=== PATIENT | female | born 1955 | race Two or more races ===

== ENCOUNTER 2016-11-05 12:32 | Emergency (ER) | payer OTHER ==
[2016-11-05 12:50] VITALS: BMI 39.1
[2016-11-05] MEDS ORDERED: methylPREDNISolone NA SUCC 125 MG/2 ML VIAL ONE (12:56)
--- NOTE | 2016-11-05 12:56 | PDOC ---
History of Present Illness - General History Source: Patient Exam Limitations: No Limitations - History of Present Illness Initial Comments: 11/05/16 13:35 The patient is a 61 year old female with no significant PMH who presents to the emergency department with an allergic reaction beginning approximately 1 hour ago. The patient reports that she was eating a bagel with cream cheese and coffee when her tongue and face began to swell within seconds. The patient reports associated LLQ abdominal pain with her allergic reaction. The patient notes that she has had a similar reaction 4 times within the past two months, but that her PCP is unaware of these episodes. The patient denies chest pain, shortness of breath, headache and dizziness. Denies fever, chills, nausea, vomit, diarrhea and constipation. Denies dysuria, frequency, urgency and hematuria. Allergies: NKA Past surgical history: Social history: No reported cigarette, alcohol, or drug use. PCP: Dr. Scott <Leif Tobar - Last Filed: 11/05/16 18:01> <Sai Jara - Last Filed: 11/05/16 18:44> - General Chief Complaint: Allergic Reaction Stated Complaint: HIVES Time Seen by Provider: 11/05/16 12:55 Past History <Leif Tobar - Last Filed: 11/05/16 18:01> - Past Medical History Other medical history: denies - Immunization History Immunization Up to Date: Yes - Psycho/Social/Smoking Cessation Hx Suicidal Ideation: No Smoking History: Never smoked Information on smoking cessation initiated: No Hx Alcohol Use: No Drug/Substance Use Hx: No Substance Use Type: None <Sai Jara - Last Filed: 11/05/16 18:44> - Past Medical History Allergies/Adverse Reactions: Allergies Allergy/AdvReac Type Severity Reaction Status Date / Time No Known Allergies Allergy Verified 11/05/16 13:07 Home Medications: Ambulatory Orders NK [No Known Home Medication] 11/05/16 Review of Systems - Review of Systems Comments:: 11/05/16 13:37 GENERAL/CONSTITUTIONAL: No fever or chills. No weakness. HEAD, EYES, EARS, NOSE AND THROAT: No change in vision. No ear pain or discharge. No sore throat. CARDIOVASCULAR: No chest pain or shortness of breath. RESPIRATORY: No cough, wheezing, or hemoptysis. GASTROINTESTINAL: (+) LLQ abdominal pain. No nausea, vomiting, diarrhea or constipation. GENITOURINARY: No dysuria, frequency, or change in urination. MUSCULOSKELETAL: No joint or muscle swelling or pain. No neck or back pain. SKIN: No rash NEUROLOGIC: No headache, vertigo, loss of consciousness, or change in strength/ sensation. ENDOCRINE: No increased thirst. No abnormal weight change. HEMATOLOGIC/LYMPHATIC: No anemia, easy bleeding, or history of blood clots. ALLERGIC/IMMUNOLOGIC: (+) Tongue and face swelling. <Leif Tobar - Last Filed: 11/05/16 18:01> *Physical Exam - Vital Signs Last Vital Signs Temp Pulse Resp BP Pulse Ox 98.2 F 100 H 28 H 168/94 100 11/05/16 12:46 11/05/16 12:46 11/05/16 12:46 11/05/16 12:46 11/05/16 12:46 - Physical Exam Comments: 11/05/16 13:38 GENERAL: Awake, alert, and fully oriented, in no acute distress HEAD: No signs of trauma EYES: PERRLA, EOMI, sclera anicteric, conjunctiva clear ENT: (+) Tongue swollen to about 2x size. No airway compromise in posterior pharynx. Auricles normal inspection, hearing grossly normal, nares patent, oropharynx clear without exudates. Moist mucosa NECK: Normal ROM, supple, no lymphadenopathy, JVD, or masses LUNGS: Breath sounds equal, clear to auscultation bilaterally. No wheezes, and no crackles HEART: Regular rate and rhythm, normal S1 and S2, no murmurs, rubs or gallops ABDOMEN: (+) LLQ tender to palpation. Soft, normoactive bowel sounds. No guarding, no rebound. No masses EXTREMITIES: Normal range of motion, no edema. No clubbing or cyanosis. No cords, erythema, or tenderness NEUROLOGICAL: Cranial nerves II through XII grossly intact. Normal speech, normal gait SKIN: Warm, Dry, normal turgor, no lesions noted. <Leif Tobar - Last Filed: 11/05/16 18:01> - Vital Signs Last Vital Signs Temp Pulse Resp BP Pulse Ox 98.2 F 100 H 28 H 168/94 100 11/05/16 12:46 11/05/16 12:46 11/05/16 12:46 11/05/16 12:46 11/05/16 12:46 <Sai Jara - Last Filed: 11/05/16 18:44> ED Treatment Course - LABORATORY CBC & Chemistry Diagram: 11/05/16 13:05 11/05/16 13:05 - ADDITIONAL ORDERS Additional order review: 11/05/16 13:05 RBC 5.33 H MCV 79.1 L MCHC 30.2 L RDW 17.2 H MPV 9.1 Neutrophils % 70.7 Lymphocytes % 22.4 Monocytes % 5.3 Eosinophils % 1.2 Basophils % 0.4 - Medications Given in the ED: ED Medications Discontinued Medications Generic Name Dose Route Start Last Admin Trade Name Primoq PRN Reason Stop Dose Admin Diphenhydramine HCl 50 mg 11/05/16 12:57 11/05/16 13:05 Benadryl Injection - IVPUSH 11/05/16 12:58 50 mg ONCE ONE Administration Famotidine/Sodium Chloride 50 mls @ 100 mls/hr 11/05/16 12:57 11/05/16 13:05 Pepcid 20 Mg Premixed Ivpb - IVPB 11/05/16 13:26 100 mls/hr ONCE ONE Administration Methylprednisolone Sodium Succinate 40 mg 11/05/16 12:57 11/05/16 13:05 Solu-Medrol - IVPB 11/05/16 12:58 40 mg ONCE ONE Administration Methylprednisolone Sodium Succinate 125 mg 11/05/16 12:58 11/05/16 13:05 Solu-Medrol - IVPB 11/05/16 12:59 125 mg ONCE ONE Administration <Leif Tobar - Last Filed: 11/05/16 18:01> - LABORATORY CBC & Chemistry Diagram: 11/05/16 13:05 11/05/16 13:05 <Sai Jara - Last Filed: 11/05/16 18:44> Medical Decision Making - Medical Decision Making 11/05/16 18:38 Hematuria and pain with no stone on CT... ? Passed Stone? .... UTI? Will treat for UTI and have patient follow up with her primary care doctor and an microscopist <Sai Jara - Last Filed: 11/05/16 18:44> *DC/Admit/Observation/Transfer - Attestations Scribe Attestion: 11/05/16 13:38 Documentation prepared by Leif Tobar, acting as medical terminologist for Sai Jara DO. <Leif Tobar - Last Filed: 11/05/16 18:01> - Discharge Dispostion Admit: No - Attestations Physician Attestion: 11/05/16 12:56 I, Dr. Sai Jara, attest that this document has been prepared under my direction and personally reviewed by me in its entirety. I further attest, that it accurately reflects all work, treatment, procedures and medical decision -making performed by me. <Sai Jara - Last Filed: 11/05/16 18:44> Diagnosis at time of Disposition: Acute urticaria Hematuria Qualifiers: Hematuria type: other microscopic Qualified Code(s): R31.29 - Other microscopic hematuria; R31.2 - Other microscopic hematuria UTI (urinary tract infection) Qualifiers: Urinary tract infection type: site unspecified Hematuria presence: with hematuria Qualified Code(s): N39.0 - Urinary tract infection, site not specified ; R31.9 - Hematuria, unspecified - Discharge Dispostion Disposition: HOME Condition at time of disposition: Good - Referrals Referrals: Radha Scott MD [Primary Care Provider] - - Patient Instructions Printed Discharge Instructions: DI for Eye Allergic Reaction, DI for Hematuria , DI for Urinary Tract Infection (UTI) Additional Instructions: Mrs. Blair- You do have some blood in your urine and I think this may represent an infection. Take the antibiotic for ten days. Follow up with your regular doctor and see an microscopist. RETURN TO US IF ANY PROBLEMS...... Best- Dr. Sai Jara
[2016-11-05] MEDS ORDERED: FAMOTIDINE 20 MG/50 ML IVPB 50 ML IVPB ONE ×2 (12:57)
[2016-11-05] MEDS ORDERED: methylPREDNISolone NA SUCC 40 MG/1 ML VIAL IVPB ONE (12:57)
[2016-11-05] MEDS ORDERED: methylPREDNISolone NA SUCC 125 MG/2 ML VIAL IVPB ONE (12:58)
[2016-11-05 13:20] LABS: BASOPHIL 0.4 % (0-2.0); EOSINOPHIL 1.2 % (0-4.5); MCH 23.9 pg (25.7-33.7); MCHC 30.2 g/dl (32.0-36.0); MEAN CELL VOLUME 79.1 fl (80-96); MEAN PLT VOLUME 9.1 fl (7.5-11.1); NEUTROPHILS 70.7 % (42.8-82.8); PLATELET COUNT 364 K/MM3 (134-434); RDW 17.2 % (11.6-15.6); WHITE BLOOD COUNT 15.3 K/mm3 (4.0-10.0)
[2016-11-05 13:48] LABS: INR 1.12 (0.82-1.09); PROTHROMBIN TIME (PATIENT) 12.4 SEC (9.98-11.88)
[2016-11-05 13:52] LABS: ALBUMIN 3.4 g/dl (3.4-5.0); ALK PHOS 123 U/L (45-117); ANION GAP 12 (8-16); BILIRUBIN,TOTAL 0.3 mg/dL (0.2-1.0); CALCIUM 8.9 mg/dL (8.5-10.1); CO2 25 mmol/L (21-32); CREATININE 0.9 mg/dL (0.55-1.02); GLUCOSE,RANDOM 260 mg/dL (74-106); SGOT/AST 21 U/L (15-37); SGPT/ALT 28 U/L (12-78); TOT PROT 6.7 g/dl (6.4-8.2)
[2016-11-05 16:11] VITALS: TEMP 98.7
[2016-11-05 18:27] LABS: URINE APPEARANCE CLEAR; URINE BILIRUBIN NEGATIVE (NEGATIVE); URINE BLOOD 3+ (NEGATIVE); URINE COLOR LT. RED; URINE GLUCOSE (UA) NEGATIVE (NEGATIVE); URINE KETONE NEGATIVE (NEGATIVE); URINE LEUK ESTERASE NEGATIVE (NEGATIVE); URINE NITRITE NEGATIVE (NEGATIVE); URINE PROTEIN NEGATIVE (NEGATIVE); URINE UROBILINOGEN 0.2 mg/dL (0.2-1.0)
[2016-11-05 18:39] LABS: URINE RBC 963 /hpf (0-3)
[2016-11-05 18:58] VITALS: BP 124/80; PULSE 68
== END 2016-11-05 18:58 | disposition home or self-care (01) ==
LOC: JER 12:32
PROC: 3E033GC Introduction of Other Therapeutic Substance into Peripheral Vein, Percutaneous Approach (ICD-10-PCS; principal; 2016-11-05)
PROC: 3E033GC Introduction of Other Therapeutic Substance into Peripheral Vein, Percutaneous Approach (ICD-10-PCS; 2016-11-05)
PROC: 3E0233Z Introduction of Anti-inflammatory into Muscle, Percutaneous Approach (ICD-10-PCS; 2016-11-05)
DX: T78.3XXA Angioneurotic edema, initial encounter (principal); N39.0 Urinary tract infection, site not specified; R31.9 Hematuria, unspecified
CPT/HCPCS: 36415; 74177-TC; 80053; 81003; 81015; 85025; 85610; 87086; 87186; 99283-25

== ENCOUNTER 2017-10-28 11:39 | Emergency (ER) | payer OTHER ==
[2017-10-28] MEDS ORDERED: methylPREDNISolone NA SUCC 125 MG/2 ML VIAL ONE (11:45)
[2017-10-28] MEDS ORDERED: FAMOTIDINE 20 MG/50 ML IVPB 20 MG/50 ML MG IVPB ONE ×2 (11:45→11:47)
--- NOTE | 2017-10-28 11:50 | PDOC ---
History of Present Illness - General Stated Complaint: ALLERGIC REACTION Time Seen by Provider: 10/28/17 11:47 History Source: Patient Exam Limitations: No Limitations - History of Present Illness Initial Comments: 10/28/17 11:51 62y F hx of allergic reactions (unclear trigger) presents with allergic reaction - Pt states she was fine this morning and after eating a roll with jam she started having hives/itching on her extremities. pt notes she vomited once prior to arrival and endorses some lower abdominal pain that started after eatig the roll. Pt notes this constelation of symptoms is consistent with prior allergic reationc. Pt does not know the cause of her allergic reactions - she has never seen an alelrgist before. pt marcos barrera, cp. no voice chnages. new new triggers otherwise. pt took 25mg benadryl PO prior to coming in Past History - Past Medical History Allergies/Adverse Reactions: Allergies Allergy/AdvReac Type Severity Reaction Status Date / Time No Known Allergies Allergy Verified 10/28/17 11:53 Home Medications: Ambulatory Orders Diphenhydramine [Benadryl Oral Solution -] 25 mg PO Q8H PRN 10/28/17 predniSONE [Deltasone -] 40 mg PO DAILY #8 tablet 10/28/17 COPD: No - Immunization History Immunization Up to Date: Yes - Suicide/Smoking/Psychosocial Hx Smoking History: Never smoked Have you smoked in the past 12 months: No Hx Alcohol Use: No Drug/Substance Use Hx: No Substance Use Type: None Review of Systems - Review of Systems Able to Perform ROS?: Yes Comments:: 10/28/17 12:00 Constitutional - no reported Fever, Chills, HEENT: no reported vision changes, sore throat Respiratory: no reported cough, sob, hemoptysis Cardiac: no reported chest pain, palpitations, light headedness, leg swelling Abd/GI: + nausea, vomiting, abd pain, no reported blood per rectum, melena, diarrhea : no reported dysuria, frequency, discharge Musculskelatal - no reported back pain, joint swelling skin - +hives no reported bruising, erythema, neurological: no reported headache, numbness, focal weakness, tingling, ataxia, hematologic: no reported easy bruising, easy bleeding *Physical Exam - Physical Exam Comments: 10/28/17 12:00 GENERAL: The patient is awake, alert, and fully oriented, Nontoxic - in no acute distress, obese HEAD: Normocephalic, atraumatic. EYES: extraocular movements intact, sclera anicteric, conjunctiva clear. ENT: Normal voice, Moist mucous membranes, airway patent, no stridor NECK: Normal range of motion, supple LUNGS: Breath sounds equal, clear to auscultation bilaterally. No wheezes, no rhonchi, no rales. HEART: tachycaridc ABDOMEN: Soft, nontender, No guarding, no rebound.No CVA tenderness EXTREMITIES: Normal range of motion, no edema. NEUROLOGICAL: No facial assymetry, Normal speech, PSYCH: Normal mood, normal affect. SKIN: urticaria noted on her upper extremiites , abdomen and lower extremities, Warm, Dry, normal turgor, Medical Decision Making - Medical Decision Making 10/28/17 12:01 mild allergic reaction will give benadryl, pepcid, solumedrol will monitor pt pt slightly tachy - will give fluids and reassess 10/28/17 13:29 pts feeling signicantly improved resolution of rash denies any gi or respiratory symptoms will dc pt with prenisone will have pt fu with executive assistant for further evluation I discussed the physical exam findings, ancillary test results and final diagnoses with the patient. I answered all of the patient's questions. The patient was satisfied with the care received and felt comfortable with the discharge plan and treatment plan. The patient will call their primary care physician within 24 hours to arrange follow-up and will return to the Emergency Department with any new, persistent or worsening symptoms. *DC/Admit/Observation/Transfer Diagnosis at time of Disposition: Acute urticaria - Discharge Dispostion Disposition: HOME Condition at time of disposition: Improved Decision to Admit order: No - Referrals Referrals: Armando Stanley MD [Non Staff, Medical] - - Patient Instructions Printed Discharge Instructions: DI for Hives Additional Instructions: Follow-up with an executive assistant for further evaluation of your ALLERGIC reaction. Take Benadryl for any itching. Take the prednisone as prescribed starting tomorrow. If you have any worsening symptoms including shortness of breath, swelling of on your tongue, changes in your voice shortness of breath or any other concerns return immediately for further evaluation Print Language: ROMANSH - Post Discharge Activity
[2017-10-28] MEDS ORDERED: SODIUM CHLORIDE 1,000 ML IV ONE (11:51)
[2017-10-28] MEDS ORDERED: methylPREDNISolone NA SUCC 125 MG/2 ML VIAL IVPUSH ONE (11:56)
[2017-10-28 12:12] VITALS: TEMP 98.2; BMI 36.9
[2017-10-28 13:33] VITALS: BP 165/92; PULSE 103
== END 2017-10-28 13:42 | disposition home or self-care (01) ==
LOC: FER 11:39
PROC: 3E033GC Introduction of Other Therapeutic Substance into Peripheral Vein, Percutaneous Approach (ICD-10-PCS; principal; 2017-10-28)
PROC: 3E0337Z Introduction of Electrolytic and Water Balance Substance into Peripheral Vein, Percutaneous Approach (ICD-10-PCS; 2017-10-28)
DX: L50.9 Urticaria, unspecified (principal)
CPT/HCPCS: 99283-25; J7030